=== PATIENT | female | born 1980 | race Caucasian/White ===

== ENCOUNTER 2020-11-25 09:21 | Day surgery (SDC) | payer MEDICARE ==
[2020-11-25] MEDS ORDERED: Sodium Chloride 0.9(Preservative Free) 10 ML IJ ONE (09:22)
[2020-11-25] MEDS ORDERED: Depo-Medrol 40 MG/ML IM ONE (09:22)
[2020-11-25 10:16] LABS: INR 1.06 (0.8-3.0)
[2020-11-25] MEDS ORDERED: DIPRIVAN 200 MG/20 ML IV ONE (10:28)
[2020-11-25] MEDS ORDERED: TORAdol 30 mg Injection ONE (10:59)
--- NOTE | 2020-11-25 16:12 | XRAY ---
35 seconds fluoroscopy time in surgery for right L4-S1 transforaminal LAYLA.
[2020-11-25] MEDS ORDERED: Lactated Ringers 1,000 ML IV ONE (16:39)
--- NOTE | 2020-11-26 21:52 | XRAY ---
Indication: Right L4-S1 transforaminal LAYLA. Intraoperative fluoroscopy was provided for 35 seconds. 4 digital spot films submitted for interpretation demonstrate posterior spinal needle tips projected over the expected course of the right L4 and L5 nerve roots. A small amount of contrast has been injected for needle tip placement. Correlate with intraoperative findings/report.
== END 2020-11-25 11:04 | disposition home or self-care (01) ==
LOC: SDC-PAIN 09:21
PROVIDERS: ATTEND Psychiatry & Neurology Pain Medicine
DX: M54.16 Radiculopathy, lumbar region (principal); I10 Essential (primary) hypertension; G47.30 Sleep apnea, unspecified; G54.0 Brachial plexus disorders; F41.8 Other specified anxiety disorders; Z79.899 Other long term (current) drug therapy; D69.6 Thrombocytopenia, unspecified; Z79.01 Long term (current) use of anticoagulants
CPT/HCPCS: 36415; 64483; 64484; 72100; 77003; 85610; J1030; J1885; J2704; Q9966

== ENCOUNTER 2021-01-13 11:59 | Day surgery (SDC) | payer MEDICARE ==
[2021-01-13] MEDS ORDERED: Depo-Medrol 40 MG/ML IM ONE (12:00)
[2021-01-13] MEDS ORDERED: Sodium Chloride 0.9(Preservative Free) 10 ML IJ ONE (12:00)
[2021-01-13 12:32] LABS: INR 0.95 (0.8-3.0); PROTIME 11.2 SECONDS (9.4-12.5)
[2021-01-13] MEDS ORDERED: DIPRIVAN 200 MG/20 ML IV ONE (13:35)
[2021-01-13] MEDS ORDERED: Lactated Ringers 1,000 ML IV ONE (16:03)
--- NOTE | 2021-01-13 16:59 | XRAY ---
Indication: Right L4-S1 transforaminal LAYLA. Intraoperative fluoroscopy provided for 31 seconds. 3 digital spot image submitted for interpretation demonstrate posterior needle tips projecting over the expected right L4 and L5 nerve roots. Small amount of contrast injected for needle tip placement. Correlate with intraoperative findings/report.
--- NOTE | 2021-01-13 17:04 | XRAY ---
31 seconds of fluoroscopy was used in surgery for a right L4-L5, L5-S1 transforaminal LAYLA.
== END 2021-01-13 14:00 | disposition home or self-care (01) ==
LOC: SDC-PAIN 11:59
PROVIDERS: ATTEND Psychiatry & Neurology Pain Medicine
DX: M54.16 Radiculopathy, lumbar region (principal); I10 Essential (primary) hypertension; I82.409 Acute embolism and thrombosis of unspecified deep veins of unspecified lower extremity; G47.30 Sleep apnea, unspecified; F41.9 Anxiety disorder, unspecified; F32.9 Major depressive disorder, single episode, unspecified; Z79.01 Long term (current) use of anticoagulants; Z79.899 Other long term (current) drug therapy
CPT/HCPCS: 36415; 64483; 64484; 72100; 77003; 85610; J1030; J2704; Q9966

== ENCOUNTER 2021-03-10 09:48 | Day surgery (SDC) | payer MEDICARE ==
[2021-03-10] MEDS ORDERED: Depo-Medrol 40 MG/ML IM ONE (09:49)
[2021-03-10] MEDS ORDERED: LIDOCAINE HCL 2% 100 MG/5 ML IJ ONE (09:49)
[2021-03-10 10:30] LABS: INR 0.97 (0.8-3.0); PROTIME 11.5 SECONDS (9.4-12.5)
[2021-03-10] MEDS ORDERED: DIPRIVAN 200 MG/20 ML IV ONE (12:02)
--- NOTE | 2021-03-10 12:37 | XRAY ---
Indication: Bilateral L4-S1 MBB. Intraoperative fluoroscopy provided for 10 seconds. Single digital spot images submitted for interpretation demonstrates posterior needle tips projecting over the expected left and right L4-S1 nerve roots. Correlate with intraoperative findings/report.
--- NOTE | 2021-03-10 14:41 | XRAY ---
10 seconds fluoroscopy time in surgery for bilateral L4-S1 MBB.
[2021-03-10] MEDS ORDERED: Lactated Ringers 1,000 ML IV ONE (16:35)
== END 2021-03-10 12:16 | disposition home or self-care (01) ==
LOC: SDC-PAIN 09:48
PROVIDERS: ATTEND Psychiatry & Neurology Pain Medicine
DX: M47.816 Spondylosis without myelopathy or radiculopathy, lumbar region (principal); R73.03 Prediabetes; Z79.899 Other long term (current) drug therapy; Z79.01 Long term (current) use of anticoagulants
CPT/HCPCS: 36415; 64493; 64494; 72020; 77002; 82947; 85610; J1030; J2704

== ENCOUNTER 2021-06-11 08:11 | Day surgery (SDC) | payer MEDICARE ==
[2021-06-11] MEDS ORDERED: BUPIVACAINE 0.5% VIAL IJ ONE (08:12)
[2021-06-11] MEDS ORDERED: Depo-Medrol 40 MG/ML IM ONE (08:12)
[2021-06-11 08:46] LABS: INR 0.94 (0.8-3.0); PROTIME 11.1 SECONDS (9.4-12.5)
[2021-06-11] MEDS ORDERED: DIPRIVAN 200 MG/20 ML IV ONE (09:16)
[2021-06-11] MEDS ORDERED: Lactated Ringers 1,000 ML IV ONE (09:52)
--- NOTE | 2021-06-11 10:41 | XRAY ---
Indication: Bilateral L4-S1 MBB. Intraoperative fluoroscopy provided for 10 seconds. Single digital spot image submitted for interpretation demonstrate posterior needle tips projecting over the expected left and right L4-S1 nerve roots. Correlate with intraoperative findings/report.
--- NOTE | 2021-06-11 12:32 | XRAY ---
10 seconds fluoroscopy time in surgery for bilateral L4-S1 MBB.
== END 2021-06-11 09:20 | disposition home or self-care (01) ==
LOC: SDC-PAIN 08:11
PROVIDERS: ATTEND Psychiatry & Neurology Pain Medicine
DX: M47.816 Spondylosis without myelopathy or radiculopathy, lumbar region (principal); I10 Essential (primary) hypertension; F41.9 Anxiety disorder, unspecified; F32.9 Major depressive disorder, single episode, unspecified; Z79.01 Long term (current) use of anticoagulants; Z79.899 Other long term (current) drug therapy
CPT/HCPCS: 36415; 64493; 64494; 72020; 77002; 82947; 85610; J1030; J2704

== ENCOUNTER 2021-07-07 13:24 | Day surgery (SDC) | payer MEDICARE ==
[2021-07-07] MEDS ORDERED: BUPIVACAINE 0.5% VIAL IJ ONE (13:25)
[2021-07-07] MEDS ORDERED: Depo-Medrol 40 MG/ML IM ONE (13:25)
[2021-07-07 14:19] LABS: INR 2.41 (0.8-3.0); PROTIME 28.4 SECONDS (9.4-12.5)
[2021-07-07] MEDS ORDERED: Lactated Ringers 1,000 ML IV ONE (15:39)
--- NOTE | 2021-07-07 16:42 | XRAY ---
Indication: Bilateral SI joints injection. Intraoperative fluoroscopy provided for 17 seconds. 4 digital spot image submitted for interpretation demonstrates posterior needle tip projecting over the inferior left and right SI joint. Correlate with intraoperative findings/report.
--- NOTE | 2021-07-07 16:47 | XRAY ---
17 seconds fluoroscopy time in surgery for injection of both SI joints.
== END 2021-07-07 16:20 | disposition home or self-care (01) ==
LOC: SDC-PAIN 13:24
PROVIDERS: ATTEND Psychiatry & Neurology Pain Medicine
DX: M46.1 Sacroiliitis, not elsewhere classified (principal); I10 Essential (primary) hypertension; Z79.01 Long term (current) use of anticoagulants; Z79.899 Other long term (current) drug therapy
CPT/HCPCS: 27096; 36415; 72202; 77002; 85610; G0260; J1030

== ENCOUNTER 2021-08-04 07:39 | Day surgery (SDC) | payer MEDICARE ==
[2021-08-04] MEDS ORDERED: Depo-Medrol 40 MG/ML IM ONE (07:40)
[2021-08-04] MEDS ORDERED: BUPIVACAINE 0.5% VIAL IJ ONE (07:40)
[2021-08-04 08:20] LABS: INR 0.96 (0.8-3.0); PROTIME 11.3 SECONDS (9.4-12.5)
[2021-08-04] MEDS ORDERED: DIPRIVAN 200 MG/20 ML IV ONE (09:20)
--- NOTE | 2021-08-04 10:27 | XRAY ---
Indication: Bilateral L4-S1 MBB. Intraoperative fluoroscopy provided for 16 seconds. Single digital spot image submitted for interpretation demonstrates posterior needle tips projecting over the expected left and right L4-S1 nerve roots. Correlate with intraoperative findings/report.
[2021-08-04] MEDS ORDERED: Lactated Ringers 1,000 ML IV ONE (10:37)
--- NOTE | 2021-08-04 11:00 | XRAY ---
16 seconds fluoroscopy time in surgery for bilateral L4-S1 MBB.
== END 2021-08-04 09:50 | disposition home or self-care (01) ==
LOC: SDC-PAIN 07:39
PROVIDERS: ATTEND Psychiatry & Neurology Pain Medicine
DX: M47.816 Spondylosis without myelopathy or radiculopathy, lumbar region (principal); I10 Essential (primary) hypertension; Z79.899 Other long term (current) drug therapy; Z79.01 Long term (current) use of anticoagulants
CPT/HCPCS: 36415; 64493; 64494; 72020; 77002; 85610; J1030; J2704

== ENCOUNTER 2023-11-01 09:24 | Day surgery (SDC) | payer MEDICARE ==
[2023-11-01] MEDS ORDERED: Decadron 4 MG INJ IV ONE (09:25)
[2023-11-01] MEDS ORDERED: LIDOCAINE HCL 1% 50 MG/5 ML VL PF IJ ONE (09:25)
[2023-11-01] MEDS ORDERED: Sodium Chloride 0.9(Preservative Free) 10 ML IJ ONE (09:25)
[2023-11-01 10:23] LABS: INR 0.9 (0.8-3.0); PROTIME 9.9 SECONDS (9.4-12.5)
[2023-11-01] MEDS ORDERED: DIPRIVAN 200 MG/20 ML IV ONE (11:25)
[2023-11-01] MEDS ORDERED: Xylocaine-Mpf 2% 5 Ml Vial ONE (11:29)
[2023-11-01] MEDS ORDERED: Lactated Ringers 1,000 ML IV ONE (11:42)
--- NOTE | 2023-11-01 12:56 | XRAY ---
Indication: Right piriformis injection. Intraoperative fluoroscopy provided for 8 seconds. Single digital spot images submitted for interpretation demonstrates posterior needle tip projecting over right piriformis. Small amount of contrast injected for needle tip placement. Correlate with intraoperative findings/report.
--- NOTE | 2023-11-01 12:56 | XRAY ---
8 seconds of fluoroscopy was used in surgery for a right piriformis injection.
--- NOTE | 2023-11-01 12:56 | XRAY ---
22 seconds of fluoroscopy was used in surgery for a right L4-S1 transforaminal LAYLA.
--- NOTE | 2023-11-01 12:56 | XRAY ---
Indication: Right L4-S1 transforaminal LAYLA. Intraoperative fluoroscopy provided for 22 seconds. 4 digital spot images submitted for interpretation demonstrates posterior needle tip projecting over right L4 and L5 nerve roots. Small amount of contrast injected for needle tip placement. Correlate with intraoperative findings/report.
== END 2023-11-01 11:58 | disposition home or self-care (01) ==
LOC: SDC-PAIN 09:24
PROVIDERS: ATTEND Psychiatry & Neurology Pain Medicine
DX: M54.16 Radiculopathy, lumbar region (principal); Z79.01 Long term (current) use of anticoagulants
CPT/HCPCS: 20552; 36415; 64483; 64484; 72100; 72170; 77002; 77003; 82947; 85610; J1100; J2001; J2704; Q9966

== ENCOUNTER 2024-02-14 11:27 | Day surgery (SDC) | payer MEDICARE ==
[2024-02-14] MEDS ORDERED: Depo-Medrol 40 MG/ML IM ONE (11:28)
[2024-02-14] MEDS ORDERED: BUPIVACAINE 0.5% VIAL IJ ONE (11:28)
[2024-02-14] MEDS ORDERED: DIPRIVAN 200 MG/20 ML IV ONE (12:50)
--- NOTE | 2024-02-14 13:18 | XRAY ---
13 seconds of fluoroscopy was used in surgery for a right intra-articular shoulder and subacromial bursa injection.
--- NOTE | 2024-02-14 13:18 | XRAY ---
Indication: Right shoulder and subacromial bursa injection. Intraoperative fluoroscopy provided for 13 seconds. 3 lateral digital spot image submitted for interpretation demonstrates needle tip projecting over the right glenohumeral joint superiorly. Second needle tip subacromial. Small amount of contrast injected for needle tip placement. Correlate with intraoperative findings/report.
[2024-02-14] MEDS ORDERED: Lactated Ringers 1,000 ML IV ONE (14:07)
== END 2024-02-14 13:17 | disposition home or self-care (01) ==
LOC: SDC-PAIN 11:27
PROVIDERS: ATTEND Psychiatry & Neurology Pain Medicine
DX: M19.011 Primary osteoarthritis, right shoulder (principal); M75.51 Bursitis of right shoulder; I10 Essential (primary) hypertension
CPT/HCPCS: 20610; 73030; 77002; 82947; J2704; Q9966

== ENCOUNTER 2024-06-13 15:49 | Emergency (ER) | payer MEDICARE ==
[2024-06-13 16:09] VITALS: TEMP 97.1; O2SAT 98
[2024-06-13] MEDS ORDERED: TYLENOL 325 MG ONE (16:27)
[2024-06-13] MEDS ORDERED: BENADRYL 50 MG/ML ONE (16:27)
[2024-06-13] MEDS ORDERED: Reglan 10 MG/2 ML ONE (16:28)
[2024-06-13] MEDS: TYLENOL 325 MG PO ONE (16:31)
[2024-06-13] MEDS: Reglan 10 MG/2 ML IV ONE (16:31)
[2024-06-13] MEDS: BENADRYL 50 MG/ML IV ONE (16:31)
[2024-06-13 17:05] LABS: Absolute Neutrophil Ct (ANC) 14.36 x10^3/uL (1.56-6.13); BASOPHIL % 0.7 % (0.1-1.2); Basophil (Absolute #) 0.15 x10^3/uL (0.01-0.08); Eosinophil % 0.8 % (0.7-5.8); Eosinophil (Absolute #) 0.16 x10^3/uL (0.04-0.36); Hemoglobin 16.1 g/dL (11.2-15.7); IMMATURE GRAN # 0.15 x10^3u/L (0.001-0.031); IMMATURE GRAN % 0.7 % (0.001-0.429); Lymphocyte (Absolute #) 4.97 x10^3/uL (1.18-3.74); Lymphocytes % 23.8 % (19.3-51.7); Mean Cell Volume 93.6 fL (79.4-94.8); Mean Corpuscular Hemoglobin 32.1 pg (25.6-32.2); Mean Corpuscular Hgb Concent. 34.3 g/dL (32.2-35.5); Mean Platelet Volume 9.6 fL (9.4-12.3); Monocyte (Absolute #) 1.13 x10^3/uL (0.24-0.86); Monocytes % 5.4 % (4.7-12.5); Neutrophil % 68.6 % (34.0-71.1); Platelet Count 330 x10^3/uL (182-369); Red Blood Count 5.02 x10^6/uL (3.93-5.22); Red Cell Distribution Width 13.3 % (11.7-14.4); White Blood Count 20.9 x10^3/uL (3.98-10.04)
[2024-06-13 17:15] LABS: Appearance Clear (Clear); Bacteria Rare /HPF (None Seen); Bilirubin Negative (Negative); Blood Trace (Negative); Epithelial Cells Rare /HPF (None Seen); Glucose, Urine Negative (Negative); Hyaline Casts NONE SEEN /LPF (0-2); Ketones Negative (Negative); Leukocyte Esterase Negative (Negative); Nitrite Negative (Negative); Protein,Urine Dip Negative (Negative); Urobilinogen 0.2 mg/dL (0.2); WBC 0-2 /HPF (0-5)
[2024-06-13 17:19] LABS: ALBUMIN 4.2 g/dL (3.5-5.0); ANION GAP 14.8 MEQ/L (5-15); BILIRUBIN,TOTAL 0.4 mg/dL (0.2-1.3); Calcium 9.1 mg/dL (8.4-10.2); Creatinine 1 0.93 mg/dL (0.52-1.04); EST GLOMERULAR FILTRATION RATE 78.2 ML/MIN; Potassium 3.7 mmol/L (3.5-5.1); Total Protein 7.7 g/dL (6.3-8.2)
--- NOTE | 2024-06-13 18:02 | ERPHSYRPT ---
- History of Present Illness Time Seen by Provider: 06/13/24 16:02 Source: patient Exam Limitations: no limitations Patient Subjective Stated Complaint: hypertension Triage Nursing Assessment: Pt brought self to ER, hypertensive, tachycardia, rates pain 10 in right shoulder that is chronic pain, pulses normal, no edema, no difficulty breathing, headache, denies n/v, does not appear to be in any distress. Physician History: 43 years old female with history of hypertension, diabetes mellitus, bilateral pulmonary embolisms on Xarelto presented in the ER with complaints of high blood pressure and 10/10 intensity generalized headache. Patient reports history of migraine but never had this severe headache. Patient was earlier at therapy where her blood pressure was persistently high and 170s and 180s. Denies any chest pain palpitations or shortness of breath. No abdominal pain nausea or vomiting. Denies any blurry vision. No numbness tingling or focal weakness reported. Patient reports usual blood pressure is in 140s. Allergies/Adverse Reactions: adhesive tape Allergy (Verified 06/13/24 16:10) paroxetine [From Paxil] Allergy (Verified 06/13/24 16:10) Swelling of Tongue and Lips Home Medications: Gabapentin [Neurontin ] 400 mg PO TID 06/13/24 [History] Hydroxychloroquine Sulfate [Plaquenil] 200 mg PO BID 06/13/24 [History] Lisinopril 20 mg [Zestril 20 MG] 20 mg PO DAILY 06/13/24 [History] Omeprazole 40 mg PO DAILY 06/13/24 [History] Oxycodone HCl/Acetaminophen [Oxycodone-Acetaminophen 5-325] 1 tab PO TID 06/13/24 [History] Quetiapine Fumarate [Seroquel] 200 mg PO DAILY 06/13/24 [History] Rivaroxaban 10 mg Tablet [Xarelto 10 mg Tablet] 10 mg PO DAILY 06/13/24 [History] Semaglutide [Ozempic] 1 mg SQ WEEKLY 06/13/24 [History] Tizanidine HCl 4 mg [Zanaflex 4 MG] 4 mg PO BID 06/13/24 [History] Hx Influenza Vaccination/Date Given: No Hx Pneumococcal Vaccination/Date Given: No Travel Risk - International Travel Have you traveled outside of the country in past 3 weeks: No - Emerging Infectious Disease Are you exhibiting symptoms associated with any current EIDs: No - Review of Systems Constitutional: No Symptoms Eyes: No Symptoms Ears, Nose, & Throat: No Symptoms Respiratory: No Symptoms Cardiac: No Symptoms Abdominal/Gastrointestinal: No Symptoms Genitourinary Symptoms: No Symptoms Musculoskeletal: No Symptoms Skin: No Symptoms Neurological: Headache Psychological: No Symptoms Endocrine: No Symptoms Hematologic/Lymphatic: No Symptoms Immunological/Allergic: No Symptoms - Past Medical History Pertinent Past Medical History: Yes Neurological History: No Pertinent History Cardiac History: Hypertension Respiratory History: COPD Endocrine Medical History: No Pertinent History Musculoskeletal History: Fibromyalgia, Osteoarthritis Other Medical History: Depression, Thoracic Outlet Syndrome, Sciatica, PTSD, Anxiety, Bipolar. x3, Partial Hysterectomy, Cholecystectomy (1999), multiple injections received in Pain Management for back and shoulder pain - Past Surgical History Past Surgical History: Yes Gastrointestinal: Cholecystectomy Female Surgical History: Hysterectomy, Section - Female History Hx Now: No (hysterectomy) - Social History Smoking Status: Current every day smoker Exposure to second hand smoke: Yes Drug Use: none - Social Determinants of Health Will the patient participate in the screening: Yes Do you worry about a steady place to live?: No Do you have any problems with any of the following?: No known problems In the past 12 months,have you had to go without utilities?: No Transportation Issues: No Has anyone in your support network made you feel unsafe?: No Have you or anyone in your house had to go without enough: No - Nursing Vital Signs Nursing Vital Signs: Initial Vital Signs Temperature 97.1 F 06/13/24 15:56 Pulse Rate 111 H 06/13/24 15:56 Respiratory Rate 16 06/13/24 15:56 Blood Pressure 181/106 06/13/24 15:56 O2 Sat by Pulse Oximetry 98 06/13/24 15:56 Pain Scale Pain Intensity 10 - Physical Exam General Appearance: no apparent distress, alert Eye Exam: PERRL/EOMI Ears, Nose, Throat Exam: normal ENT inspection Neck Exam: normal inspection, non-tender, supple, full range of motion Respiratory Exam: normal breath sounds, lungs clear Cardiovascular Exam: regular rate/rhythm, normal heart sounds Gastrointestinal/Abdomen Exam: soft, normal bowel sounds, tenderness Back Exam: normal inspection, normal range of motion Extremity Exam: normal inspection, normal range of motion Neurologic Exam: alert, oriented x 3, cooperative, chief privacy officer II-XII nml as tested, nml cerebellar function, nml station & gait, sensation nml, No normal mood/affect (Anxious), No motor deficits Skin Exam: normal color SpO2 Interpretation: normal SpO2: 98 O2 Delivery: Room Air - Course EKG Interpreted by Me: RATE ([id number]), Sinus Tach, NORMAL AXIS, prolonged QT interval, NORMAL QRS Ordered Tests: Active Orders 24 hr Category Date Time Status Metal Burnisher STAT Care 06/13/24 16:26 Completed EKG-ER Only STAT Care 06/13/24 16:19 Completed IV Insertion STAT Care 06/13/24 16:19 Completed NPO (ED) STAT Care 06/13/24 16:22 Completed CHEST 1 VIEW (PORTABLE) Stat Exams 06/13/24 16:22 Completed HEAD WITHOUT CONTRAST [CT] Stat Exams 06/13/24 16:23 Completed CBC W DIFF Stat Lab 06/13/24 16:58 Completed CMP Stat Lab 06/13/24 16:58 Completed MAG [MAGNESIUM] Stat Lab 06/13/24 16:58 Completed TROPONIN Q3H Lab 06/13/24 16:58 Completed UA W/RFX UR CULTURE Stat Lab 06/13/24 16:26 Completed Medication Summary Discontinued Medications Generic Name Dose Route Start Last Admin Trade Name Roselyn PRN Reason Stop Dose Admin Acetaminophen 975 mg 06/13/24 16:23 06/13/24 16:31 Acetaminophen 325 Mg Tablet PO 06/13/24 16:24 975 mg STAT ONE Administration Acetaminophen Confirm 06/13/24 16:27 Acetaminophen 325 Mg Tablet Administered 06/13/24 16:28 Dose 975 mg .ROUTE .STK-MED ONE Diphenhydramine HCl 50 mg 06/13/24 16:23 06/13/24 16:31 Diphenhydramine Hcl 50 Mg/Ml Vial IV 06/13/24 16:24 50 mg STAT ONE Administration Diphenhydramine HCl Confirm 06/13/24 16:27 Diphenhydramine Hcl 50 Mg/Ml Vial Administered 06/13/24 16:28 Dose 50 mg .ROUTE .STK-MED ONE Metoclopramide HCl 10 mg 06/13/24 16:23 06/13/24 16:31 Metoclopramide Hcl 10 Mg/2 Ml Vial IV 06/13/24 16:24 10 mg STAT ONE Administration Metoclopramide HCl Confirm 06/13/24 16:28 Metoclopramide Hcl 10 Mg/2 Ml Vial Administered 06/13/24 16:29 Dose 10 mg .ROUTE .K-MED ONE Lab/Rad Data: Laboratory Result Diagrams 06/13/24 16:58 06/13/24 16:58 Laboratory Results 06/13/24 06/13/24 06/13/24 Range/Units 16:58 16:58 16:58 WBC (3.98-10.04) x10^3/uL RBC (3.93-5.22) x10^6/uL Hgb (11.2-15.7) g/dL Hct (34.1-44.9) % MCV (79.4-94.8) fL MCH (25.6-32.2) pg MCHC (32.2-35.5) g/dL RDW (11.7-14.4) % Plt Count (182-369) x10^3/uL MPV (9.4-12.3) fL Gran % (34.0-71.1) % Immature Gran % (Auto) (0.001-0.429) % Nucleat RBC Rel Count (0.00-0.2) % Eos # (Auto) (0.04-0.36) x10^3/uL Immature Gran # (Auto) (0.001-0.031) x10^3u/L Absolute Lymphs (auto) (1.18-3.74) x10^3/uL Absolute Monos (auto) (0.24-0.86) x10^3/uL Absolute Nucleated RBC (0.00-0.012) x10^3u/L Lymphocytes % (19.3-51.7) % Monocytes % (4.7-12.5) % Eosinophils % (0.7-5.8) % Basophils % (0.1-1.2) % Absolute Granulocytes (1.56-6.13) x10^3/uL Basophils # (0.01-0.08) x10^3/uL Sodium 141 (135-145) mmol/L Potassium 3.7 (3.5-5.1) mmol/L Chloride 108 H (98-107) mmol/L Carbon Dioxide 23 (22-30) mmol/L Anion Gap 14.8 (5-15) MEQ/L BUN 6 L (7-17) mg/dL Creatinine 0.93 (0.52-1.04) mg/dL Estimated GFR 78.2 ML/MIN Glucose 94 (74-106) mg/dL Calcium 9.1 (8.4-10.2) mg/dL Magnesium 1.9 (1.6-2.3) mg/dL Total Bilirubin 0.40 (0.2-1.3) mg/dL AST 22 (14-36) U/L ALT 21 (0-35) U/L Alkaline Phosphatase 103 (38-126) U/L Troponin I < 0.012 (0.000-0.033) ng/mL Serum Total Protein 7.7 (6.3-8.2) g/dL Albumin 4.2 (3.5-5.0) g/dL Urine Color (Yellow) Urine Appearance (Clear) Urine pH (4.6-8.0) Ur Specific [place] (1.005-1.030) Urine Protein (Negative) Urine Glucose (UA) (Negative) mg/dL Urine Ketones (Negative) Urine Blood (Negative) Urine Nitrite (Negative) Urine Bilirubin (Negative) Urine Urobilinogen (0.2) mg/dL Ur Leukocyte Esterase (Negative) U Hyaline Cast (Auto) (0-2) /LPF Urine Microscopic RBC (0-5) /HPF Urine Microscopic WBC (0-5) /HPF Ur Epithelial Cells (None Seen) /HPF Urine Bacteria (None Seen) /HPF Urine Culture Reflexed (NO) 06/13/24 06/13/24 Range/Units 16:58 16:26 WBC 20.9 H (3.98-10.04) x10^3/uL RBC 5.02 (3.93-5.22) x10^6/uL Hgb 16.1 H (11.2-15.7) g/dL Hct 47.0 H (34.1-44.9) % MCV 93.6 (79.4-94.8) fL MCH 32.1 (25.6-32.2) pg MCHC 34.3 (32.2-35.5) g/dL RDW 13.3 (11.7-14.4) % Plt Count 330 (182-369) x10^3/uL MPV 9.6 (9.4-12.3) fL Gran % 68.6 (34.0-71.1) % Immature Gran % (Auto) 0.7 H (0.001-0.429) % Nucleat RBC Rel Count 0.0 (0.00-0.2) % Eos # (Auto) 0.16 (0.04-0.36) x10^3/uL Immature Gran # (Auto) 0.15 H (0.001-0.031) x10^3u/L Absolute Lymphs (auto) 4.97 H (1.18-3.74) x10^3/uL Absolute Monos (auto) 1.13 H (0.24-0.86) x10^3/uL Absolute Nucleated RBC 0.00 (0.00-0.012) x10^3u/L Lymphocytes % 23.8 (19.3-51.7) % Monocytes % 5.4 (4.7-12.5) % Eosinophils % 0.8 (0.7-5.8) % Basophils % 0.7 (0.1-1.2) % Absolute Granulocytes 14.36 H (1.56-6.13) x10^3/uL Basophils # 0.15 H (0.01-0.08) x10^3/uL Sodium (135-145) mmol/L Potassium (3.5-5.1) mmol/L Chloride (98-107) mmol/L Carbon Dioxide (22-30) mmol/L Anion Gap (5-15) MEQ/L BUN (7-17) mg/dL Creatinine (0.52-1.04) mg/dL Estimated GFR ML/MIN Glucose (74-106) mg/dL Calcium (8.4-10.2) mg/dL Magnesium (1.6-2.3) mg/dL Total Bilirubin (0.2-1.3) mg/dL AST (14-36) U/L ALT (0-35) U/L Alkaline Phosphatase (38-126) U/L Troponin I (0.000-0.033) ng/mL Serum Total Protein (6.3-8.2) g/dL Albumin (3.5-5.0) g/dL Urine Color Yellow (Yellow) Urine Appearance Clear (Clear) Urine pH 7.0 (4.6-8.0) Ur Specific [place] 1.010 (1.005-1.030) Urine Protein Negative (Negative) Urine Glucose (UA) Negative (Negative) mg/dL Urine Ketones Negative (Negative) Urine Blood Trace (Negative) Urine Nitrite Negative (Negative) Urine Bilirubin Negative (Negative) Urine Urobilinogen 0.2 (0.2) mg/dL Ur Leukocyte Esterase Negative (Negative) U Hyaline Cast (Auto) NONE SEEN (0-2) /LPF Urine Microscopic RBC 6-10 A (0-5) /HPF Urine Microscopic WBC 0-2 (0-5) /HPF Ur Epithelial Cells Rare (None Seen) /HPF Urine Bacteria Rare A (None Seen) /HPF Urine Culture Reflexed NO (NO) - Progress Progress: improved, re-examined Progress Note: 06/13/24 17:59 43-year-old is evaluated in ER for severe headache and elevated blood pressure. EKG is normal sinus rhythm. Has nonfocal neuroexam. Given Benadryl Reglan and Tylenol, on reevaluation her headache is improved. Patient being on Xarelto with 10/10 intensity headache I have obtained CT head which is negative per p reliminary report, official final report is pending. Chest x-ray is negative for any acute cardiopulmonary findings reviewed by me, official report is pending. Patient has a white count of 20 and does have history of chronic elevated white count but patient has never followed up with hematology. Chemistries fairly unremarkable. Negative troponins. I believe patient has a combination of high blood pressure possibly caused by headache or vice versa. Recommended taking Tylenol as needed, monitoring of blood pressure and outpatient follow-up. Patient blood pressure improved in 140s without any antihypertensive. Discussed signs symptoms of worsening needing return to ER which she seems understanding. Stable for discharge. Counseled pt/family regarding: lab results, diagnosis, need for follow-up, rad results Medical Desision Making - Diagnostic Testing Diagnostic test were ordered, analyzed, and reviewed by me: Yes Radiological Interpretation: Interpreted by me, Reviewed by me, Teleradiologist Report - Risk of complications The pt has a mod risk of morbidity or mortality based on: Need for prescription drug management - Departure Departure Disposition: Home Clinical Impression: Migraine, Hypertension, Leukocytosis Condition: Stable Critical Care Time: No Referrals: LANRE MATHUR MD [Primary Care Provider] - Follow up with PCP 1 day Instructions: Malignant Hypertension (DC) Additional Instructions: Monitor your blood pressure regularly, keep a log and follow-up with PCP for reevaluation. Take low-salt diet. Take Tylenol as needed for headache. Follow-up with PCP and may need referral for hematology for further evaluation of elevated white count. Return to ER for intractable headache, chest pain, blurry vision, numbness tingling or focal weakness etc.
[2024-06-13 18:09] VITALS: BP 140/108; PULSE 100; RESP 24
--- NOTE | 2024-06-13 22:15 | XRAY ---
Indication: Hypertension. Comparison: April 16, 2024 Portable chest again demonstrates right mid to lower lung discoid atelectasis/scarring. No focal infiltrate, consolidation, or large effusion. Heart not enlarged. Bony thorax intact. Impression: Nonacute chest with chronic feature.
--- NOTE | 2024-06-13 22:15 | XRAY ---
Indication: Hypertension. Headache. Multiple contiguous axial images obtained through the head without contrast. Comparison: None Age-appropriate global atrophy and minimal periventricular degenerative micro-ischemia bilaterally. No acute intracranial hemorrhage, abnormal extra-axial fluid collection, or mass effect. Fourth ventricle is midline without hydrocephalus. Bony calvarium intact. Visualized paranasal sinuses and mastoid air cells are clear. Impression: Nonacute senile brain.
== END 2024-06-13 18:05 | disposition home or self-care (01) ==
LOC: ED 15:49
DX: I10 Essential (primary) hypertension (principal); M25.511 Pain in right shoulder; E11.9 Type 2 diabetes mellitus without complications; F17.200 Nicotine dependence, unspecified, uncomplicated; R51.9 Headache, unspecified; D72.829 Elevated white blood cell count, unspecified; Z79.01 Long term (current) use of anticoagulants; Z86.711 Personal history of pulmonary embolism
CPT/HCPCS: 36415; 70450; 71045; 80053; 81001; 83735; 84484; 85025; 93005; 93041; 96374; 96375; 99284; 99285; J1200; A9270-GY

== ENCOUNTER 2024-10-23 11:52 | Day surgery (SDC) | payer MEDICARE ==
[2024-10-23] MEDS ORDERED: Depo-Medrol 40 MG/ML IM ONE (11:53)
[2024-10-23] MEDS ORDERED: LIDOCAINE HCL 2% 100 MG/5 ML IJ ONE (11:53)
[2024-10-23 12:41] LABS: INR 0.94 (0.8-3.0); PROTIME 10.3 SECONDS (9.4-12.5)
[2024-10-23] MEDS ORDERED: propofoL IV ONE (13:26)
[2024-10-23] MEDS ORDERED: TRANDATE 20 MG/4 ML SYRINGE IV ONE (13:33)
--- NOTE | 2024-10-23 15:00 | XRAY ---
Indication: Bilateral L2-L4 MBB. Intraoperative fluoroscopy provided for 9 seconds. 2 digital spot image submitted for interpretation demonstrate posterior needle tips projecting over expected left and right L2-L4 nerve roots. Correlate with intraoperative findings/report.
--- NOTE | 2024-10-23 16:28 | XRAY ---
9 seconds of fluoroscopy was used in surgery for a bilateral L2-L4 MBB.
== END 2024-10-23 14:11 | disposition home or self-care (01) ==
LOC: SDC-PAIN 11:52
PROVIDERS: ATTEND Psychiatry & Neurology Pain Medicine
DX: M47.816 Spondylosis without myelopathy or radiculopathy, lumbar region (principal); R73.03 Prediabetes; Z79.01 Long term (current) use of anticoagulants
CPT/HCPCS: 36415; 64493; 64494; 72020; 82947; 85610; J2704